=== PATIENT | female | born 1970 | race Caucasian/White ===

== ENCOUNTER 2016-10-10 08:45 | Emergency (ER) | payer OTHER ==
[~2016-10-10] VITALS: Ht 167.6 cm; Wt 54.4 kg
[~2016-10-10 08:45] MED LIST: ADVIL200 MG PO; ALPRAZOLAM0.5 M4 PO; DOLOPHINE HCL10 M1 PO; FIORICET 50-301 EACH PO; LEVOTHYROXINE150 MCG PO; LIORESAL 10MG T10 MG PO; MOTRIN 600 MG600 MG PO; PERCOCET 325 MG1 TA2 PO; PREMARIN0.9 M1 PO; ZOCOR40 M1 PO
[2016-10-10 08:57] VITALS: BP 142/88
--- NOTE | 2016-10-10 09:06 | ED GI/GU/ABDOMINAL COMPLAINT ---
History of Present Illness General Chief Complaint: Abdominal Pain/Flank Pain Stated Complaint: RIGH FLANK PAIN Source: patient, old records Exam Limitations: no limitations Vital Signs & Intake/Output Vital Signs & Intake/Output Vital Signs Date Time Temp Pulse Resp B/P Pulse O2 O2 Flow FiO2 Ox Delivery Rate 10/10 0857 96.9 63 20 142/88 96 Room Air Room Air Allergies Coded Allergies: nicotine (Mild, SKIN IRRITATION 10/10/16) Reconcile Medications Alprazolam 0.5 MG TABLET 1 TAB PO BIDP PRN ANXIETY (Reported) Amitriptyline HCl 25 MG TABLET 1 TAB PO QPM PRN UNKNOWN (Reported) Butalb/Acetaminophen/Caffeine (Fioricet 50-300-40 MG Capsule) 50 MG-300 MG-40 MG CAPSULE 2 TAB PO DAILY PRN HEADACHE (Reported) Estrogens, Conjugated (Premarin) 0.9 MG TABLET 1 TAB PO DAILY HRT (Reported) Levothyroxine Sodium 150 MCG TABLET 1 TAB PO DAILY AC THYROID (Reported) Methadone HCl (Dolophine HCl) 10 MG TABLET 2 TAB PO Q6 PRN PAIN (Reported) Ondansetron (Zofran Odt) 4 MG TAB.RAPDIS 1 TAB SL TID PRN nausea Oxycodone HCl 5 MG TABLET 1-2 TAB PO Q6 PRN breakthrough pain/renal colic Rosuvastatin Calcium (Crestor) 20 MG TABLET 1 TAB PO DAILY CHOLESTEROL ( Reported) Simvastatin (Zocor*) 40 MG TABLET 1 TAB PO QPM CHOLESTEROL (Reported) Tamsulosin HCl (Flomax) 0.4 MG CAP.ER.24H 1 CAP PO DAILY PRN kidney stone Triage Note: PT TO ED WITH RIGHT FLANK PAIN SINCE 0400 THIS AM, "HURTS WHEN I PEE, AND CAN ONLY GO A LITTLE BIT". Triage Nurses Notes Reviewed? yes ? n Is pt currently ? No HPI: Patient is a 46 year old female presents complaining of sudden onset of right flank pain. Pain onset this morning. Pain is a sharp pain, currently severe. Feels similar to kidney stone pain that patient had several years ago. Associated nausea. Reports very littel urine when attempts urination. Denies vomiting, dysuria, hematuria. (IBRAHIMA MENENDEZ,NOE) Past History Travel History Traveled to [place] past 21 day No Medical History Any Pertinent Medical History? see below for history Neurological: NONE EENT: NONE Cardiovascular: hyperlipidemia Respiratory: NONE Gastrointestinal: NONE Hepatic: NONE Renal: kidney stone Musculoskeletal: chronic back pain Psychiatric: anxiety Endocrine: hypothyroidism Blood Disorders: NONE Cancer(s): NONE CULINARY ART TEACHER/Reproductive: NONE Surgical History Surgical History: appendectomy, cholecystectomy, hysterectomy Psychosocial History What is your primary language [place] Tobacco Use: Current Daily Use Daily Tobacco Use Amount/Type: => 5 Cigarettes daily ETOH Use: denies use Illicit Drug Use: denies illicit drug use Family History Hx Contributory? No (NOE RAINEY) Review of Systems Review of Systems Constitutional: Denies: chills, fever. EENTM: Reports: no symptoms. Respiratory: Denies: cough, short of breath. Cardiovascular: Denies: chest pain. GI: Reports: see HPI, abdominal pain (right flank), nausea. Denies: vomiting. Genitourinary: Reports: see HPI. Musculoskeletal: Reports: back pain. Skin: Reports: no symptoms. Neurological/Psychological: Reports: no symptoms. Hematologic/Endocrine: Reports: no symptoms. Immunologic/Allergic: Reports: no symptoms. (NOE RAINEY) Physical Exam Physical Exam General Appearance: well developed/nourished, alert, awake, severe distress Head: atraumatic, normal appearance Eyes: Bilateral: normal appearance, PERRL, EOMI. Ears, Nose, Throat, Mouth: hearing grossly normal, moist mucous membrane Neck: normal inspection, supple, full range of motion Respiratory: normal breath sounds, no respiratory distress, lungs clear Cardiovascular: regular rate/rhythm Gastrointestinal: normal bowel sounds, soft, mild right flank tenderness Back: CVA tenderness (R) Neurologic/Psych: awake, alert, oriented x 3 Skin: intact, normal color, warm/dry Core Measures ACS in differential dx? No Severe Sepsis Present: No Septic Shock Present: No (NOE RAINEY) Progress Differential Diagnosis: gastritis, hepatitis, hernia, kidney stone, pancreatitis , perforated viscous, SBO, UTI/pyelo Plan of Care: Orders Procedure Date/time Status URINALYSIS 10/10 902 Complete COMPREHENSIVE METABOLIC PANEL 10/10 902 Complete CBC WITHOUT DIFFERENTIAL 10/10 902 Complete Laboratory Tests 10/10/16 1021: Urinalysis LIGHT H, Urine Color YEL, Urine Clarity HAZY H, Urine pH 6.0, Ur Specific [place] >= 1.030, Urine Protein 30 H, Urine Ketones NEG, Urine Nitrite NEG, Urine Bilirubin NEG, Urine Urobilinogen 0.2, Ur Leukocyte Esterase NEG, Ur Microscopic SEDIMENT EXAMINED, Urine RBC PACKD H, Urine WBC 3-5 H, Ur Epithelial Cells MOD H, Urine Crystals 3+ CA OX H, Urine Bacteria MANY H, Urine Mucus FEW, Urine Hemoglobin LARGE H, Urine Glucose NEG 10/10/16 0916: Anion Gap 9, Estimated GFR 60, BUN/Creatinine Ratio 15.0, Glucose 137 H, Calcium 9.8, Total Bilirubin 0.3, AST 25, ALT 51, Alkaline Phosphatase 70, Total Protein 7.2, Albumin 4.3, Globulin 2.9, Albumin/Globulin Ratio 1.5, CBC w Diff NO MAN DIFF REQ, RBC 4.20, MCV 91.2, MCH 31.0, RDW 13.8, MPV 8.4, Gran % 74.6, Lymphocytes % 20.1 L, Monocytes % 4.5, Eosinophils % 0.5, Basophils % 0.3, Absolute Granulocytes 10.0 H, Absolute Lymphocytes 2.7, Absolute Monocytes 0.6, Absolute Eosinophils 0.1, Absolute Basophils 0, PUBS MCHC 34.0 0940: Patient reports that the initial medication "took the edge off of the pain ". Additional dose of Dilaudid ordered. 1110: Patient re-eavluated multiple times. Pain gradually improving with multiple doses of pain medication. Patient wants to go home. Patient afebrile, nontoxic appearing, urine does not appear infected. Appears stable to follow up with urology. Provided patient with urine strainer. discussed with Dr. Allen: pain medication, flomax, urine strainer and follow up. (IBRAHIMA MENENDEZ,NOE) Diagnostic Imaging: Viewed by Me: CT Scan. Discussed w/RAD: CT Scan. Radiology Impression: PATIENT: SOL KUMARI PRESENT AGE: 46 PATIENT ACCOUNT NO: [id number] : 70 LOCATION: [facility] ORDERING PHYSICIAN: NOE MENENDEZ SERVICE DATE: 10/10/16 EXAM TYPE: CAT - CT ABD & PELVIS W/O IV CONTRAS EXAMINATION: CT ABDOMEN AND PELVIS WITHOUT CONTRAST CLINICAL INFORMATION: Right flank pain COMPARISON: 12/01/2014 TECHNIQUE : Multidetector volumetric imaging was performed from the superior aspect of the liver through the pubic symphysis. Sagittal and coronal reformatted images were obtained on the technologist's workstation. FINDINGS: Lung bases are grossly clear. Upper abdomen Liver shows small area low attenuation near the falciform ligament which may be hepatic variant vascular were fatty. Change. No other finding in the liver. The spleen is normal. Region the pancreas shows no free fluid. Status post cholecystectomy. . The adrenal glands are unremarkable. The bowel pattern is nonobstructing. Calcified aorta but no aneurysmal change. No bulky adenopathy here. The left kidney is grossly normal. Hydronephrosis on the right. Mild to moderate. No free fluid in the deep pelvis. IMPRESSION: Moderate hydronephrosis on right caused by a 6 x 2 mm calculus at the level just proximal to the UVJ CT PELVIS: Right ureter does lead up to a calculus near the UVJ. Measuring 6 mm x 2 mm. DICTATED BY: EMANUEL DEVRIES MD DATE/TIME DICTATED:935 FELT HOOKER:ASHLEY DATE/TIME TRANSCRIBED:10/10/16935 CONFIDENTIAL, DO NOT COPY WITHOUT APPROPRIATE AUTHORIZATION. <Electronically signed in Other Vendor System> SIGNED BY: EMANUEL DEVRIES MD 10/10/16 0957 Initial ED EKG: none (NOE RAINEY) Departure Departure Time of Disposition: 111 Disposition: HOME OR SELF CARE Condition: Stable Clinical Impression Primary Impression: Renal colic on right side Referrals: PAYAL LEONARD,DYLAN KHANNA MD,CECELIA Gamez (PCP/Family) Additional Instructions: Drink plenty of fluids. Urinate through the strainer. When you pass the stone, bring it to the urologist for analysis. Call Dr. Allen(urologist) today for appointment for follow up. Return to the ER if fevers, unable to stay hydrated, pain uncontrollable or worsening of symptoms. Departure Forms: Customer Survey General Discharge Information Prescriptions: Current Visit Scripts Oxycodone HCl 1-2 TAB PO Q6 PRN breakthrough pain/renal colic #20 TAB Ondansetron (Zofran Odt) 1 TAB SL TID PRN nausea #10 TAB Tamsulosin HCl (Flomax) 1 CAP PO DAILY PRN kidney stone #10 CAP (NOE RAINEY) PA/PLASTIC PROCESS TECHNICIAN Co-Sign Statement Statement: ED Attending supervision documentation- [] I saw and evaluated the patient. I have also reviewed all the pertinent lab results and diagnostic results. I agree with the findings and the plan of care as documented in the PA's/PLASTIC PROCESS TECHNICIAN's documentation. [X] I have reviewed the ED Record and agree with the PA's/PLASTIC PROCESS TECHNICIAN's documentation. [] Additions or exceptions (if any) to the PAs/PLASTIC PROCESS TECHNICIAN's note and plan are summarized below: [] (MYRANDA LEONARD,LUPE Lantigua)
[2016-10-10] MEDS ORDERED: AMITRIPTYLINE H25 M2 PO (09:10)
[2016-10-10] MEDS ORDERED: CRESTOR20 M2 PO (09:11)
[2016-10-10 09:23] LABS: ABSOLUTE BASOPHIL COUNT 0 /CUMM (0.0-0.2); ABSOLUTE EOSINOPHIL COUNT 0.1 /CUMM (0.0-0.7); ABSOLUTE LYMPH COUNT 2.7 /CUMM (1.2-3.4); ABSOLUTE MONOCYTE COUNT 0.6 /CUMM (0.10-0.60); BASOPHIL % 0.3 % (0.0-2.0); EOSINOPHIL % 0.5 % (0-5); HEMATOCRIT 38.3 % (37-47); MEAN CORPUSCULAR VOLUME 91.2 FL (81.0-99.0); MEAN PLATELET VOLUME 8.4 FL (7.4-10.4); PLATELET COUNT 355 /CUMM (130-400); RBC DISTRIBUTION WIDTH 13.8 % (11.5-14.5); WHITE BLOOD CELL COUNT 13.4 /CUMM (4.8-10.8)
[2016-10-10 09:24] LABS: GRANULOCYTE % 74.6 % (42.2-75.2)
--- NOTE | 2016-10-10 09:57 | CT SCAN REPORT ---
EXAMINATION: CT ABDOMEN AND PELVIS WITHOUT CONTRAST CLINICAL INFORMATION: Right flank pain COMPARISON: 12/01/2014 TECHNIQUE: Multidetector volumetric imaging was performed from the superior aspect of the liver through the pubic symphysis. Sagittal and coronal reformatted images were obtained on the technologist's workstation. FINDINGS: Lung bases are grossly clear. Upper abdomen Liver shows small area low attenuation near the falciform ligament which may be hepatic variant vascular were fatty. Change. No other finding in the liver. The spleen is normal. Region the pancreas shows no free fluid. Status post cholecystectomy. . The adrenal glands are unremarkable. The bowel pattern is nonobstructing. Calcified aorta but no aneurysmal change. No bulky adenopathy here. The left kidney is grossly normal. Hydronephrosis on the right. Mild to moderate. No free fluid in the deep pelvis. IMPRESSION: Moderate hydronephrosis on right caused by a 6 x 2 mm calculus at the level just proximal to the UVJ CT PELVIS: Right ureter does lead up to a calculus near the UVJ. Measuring 6 mm x 2 mm.
[2016-10-10] MEDS ORDERED: OXYCODONE HCL5 M1 PO (11:18)
[2016-10-10] MEDS ORDERED: ZOFRAN ODT4 M1 SL (11:18)
[2016-10-10] MEDS ORDERED: FLOMAX0.4 M1 PO (11:18)
== END 2016-10-10 11:26 ==
LOC: ERH 08:45
PROVIDERS: Physician Assistant
DX: N23 Unspecified renal colic (principal)
CPT/HCPCS: 74176; 81001; 81025; 96361; 96374; 96375; 96376; J1885; J2405